=== PATIENT | male | born 1970 | race Caucasian/White ===

== ENCOUNTER → 2016-04-05 | Outpatient (CLI) | payer OTHER | LOC: M SMT 13:21 | PROVIDERS: ATTEND Physician Assistant Medical | DX: E29.1 Testicular hypofunction (principal) ==

== ENCOUNTER → 2017-01-24 | Outpatient (REF) | payer OTHER ==
[2017-01-24 14:31] LABS: MEAN CORPUSCULAR HEMOGLOBIN 30.4 pg (27.0-33.0); MEAN CORPUSCULAR HGB CONC 34.4 g/dl (32.0-36.5); MEAN CORPUSCULAR VOLUME 88.5 fl (80.0-96.0); PLATELET COUNT, AUTOMATED 191 10^3/uL (150-450); RED CELL DISTRIBUTION WIDTH 11.8 % (11.5-14.5); WHITE BLOOD COUNT 9.1 10^3/uL (4.0-10.0)
[2017-01-28 10:13] LABS: TESTOSTERONE %FREE+WEAKLY BOUN 16.1 % (9.0-46.0); TESTOSTERONE FREE+WEAKLY BOUND 123.2 ng/dL (40.0-250.0)
== END ==
LOC: M LABDRAW1 11:21
PROVIDERS: ATTEND Internal Medicine Endocrinology, Diabetes & Metabolism
DX: E29.1 Testicular hypofunction (principal)
CPT/HCPCS: 36415; 84410; 85027; G0103

== ENCOUNTER → 2017-06-27 | Outpatient (CLI) | payer OTHER ==
[2017-06-27 13:27] LABS: HEMATOCRIT 48.5 % (42.0-52.0); HEMOGLOBIN 16.9 g/dl (13.5-17.5)
[2017-06-27 14:16] LABS: TESTOSTERONE 1083 NG/DL (241-827)
== END ==
LOC: M SMT 09:47
DX: E29.1 Testicular hypofunction (principal)
CPT/HCPCS: 84403

== ENCOUNTER → 2017-07-31 | Outpatient (REF) | payer OTHER ==
[2017-07-31 12:49] LABS: TESTOSTERONE 519 NG/DL (241-827)
== END ==
LOC: M LABDRAW1 11:56
DX: E29.1 Testicular hypofunction (principal)
CPT/HCPCS: 84403